=== PATIENT | male | born 1980 | race Caucasian/White ===

== ENCOUNTER 2018-07-04 09:51 | Emergency (ER) | payer OTHER ==
[~2018-07-04] VITALS: Ht 175.2 cm; Wt 65.8 kg
[2018-07-04 10:22] LABS: BASO % 0.4 % (0.0-1.0); EOS # 0.1 10*3/uL (0.0-0.4); EOS % 1.7 % (1.0-4.0); HEMATOCRIT 43.8 % (42.0-52.0); LYMPH # 1.4 10*3/uL (1.3-4.4); MEAN CELL VOLUME 85.9 fl (80.0-94.0); MEAN CORPUSCULAR HGB 29.4 pg (27.0-31.0); MEAN CORPUSCULAR HGB CONC 34.2 g/dl (33.0-37.0); MEAN PLATELET VOLUME 9.5 fl (9.6-12.3); MONO # 0.4 10*3/uL (0.1-1.0); NEUT # 2.7 10*3/uL (2.3-7.9); NEUT % 57.5 % (47.0-73.0); PLATELET COUNT AUTOMATED 227 10*3/uL (130-400); RED CELL DISTRI WIDTH 12.2 % (0-14.5); WHITE BLOOD COUNT 4.7 10*3/uL (4.8-10.8)
[2018-07-04 10:36] LABS: ALBUMIN 3.8 gm/dl (3.1-4.5); ALKALINE PHOSPHATASE 60 U/L (45-117); BUN 9 mg/dl (7-24); CHLORIDE 104 mmol/L (98-107); CREATININE 0.81 mg/dL (0.70-1.30); LIPASE 126 U/L (73-393); POTASSIUM 3.7 mmol/L (3.5-5.1); SGOT/AST 14 IU/L (3-35); SGPT/ALT 25 U/L (12-78); SODIUM 139 mmol/L (136-145); TOTAL PROTEIN 6.8 gm/dL (6.4-8.2)
[2018-07-04 11:22] LABS: BILIRUBIN NEGATIVE (NEGATIVE); BLOOD 3+ (NEGATIVE); CLARITY SL CLOUDY (CLEAR); COLOR YELLOW (YELLOW); GLUCOSE NEGATIVE (NEGATIVE); KETONE NEGATIVE (NEGATIVE); LEUKO ESTERASE NEGATIVE (NEGATIVE); NITRITE NEGATIVE (NEGATIVE); UROBILINOGEN 0.2 E.U./dl (0.2-1.0)
[2018-07-04 11:47] LABS: RBC TNTC rbc/hpf (0-2); WBC 0-2 wbc/hpf (0-5)
[2018-07-04] MEDS ORDERED: FLOMAX0.4 MG PO (12:00)
[2018-07-04] MEDS ORDERED: ZOFRAN ODT4 MG SL (12:00)
[2018-07-04] MEDS ORDERED: Motrin,Rufen800 MG PO (12:00)
== END 2018-07-04 12:04 | disposition home or self-care (01) ==
LOC: ED 09:51
PROVIDERS: Emergency Medicine
DX: N20.1 Calculus of ureter (principal); Z88.0 Allergy status to penicillin